=== PATIENT | female | born 1980 | race Caucasian/White ===

== ENCOUNTER → 2021-02-01 | Outpatient (CLI) | payer OTHER ==
[~2021-02-01] MED LIST: BUPR150T9 PO; CETI10CA PO; EMTR1TAB7 PO; FERR325T18 PO; FLUO20CA42 PO; MULT-301 PO; NORG1TAB87 PO; RALT400T PO
== END ==
LOC: CARD 14:51
PROVIDERS: ATTEND Family Medicine
DX: I51.7 Cardiomegaly (principal); I34.0 Nonrheumatic mitral (valve) insufficiency; Q25.1 Coarctation of aorta; Z87.74 Personal history of (corrected) congenital malformations of heart and circulatory system
CPT/HCPCS: 93306

== ENCOUNTER 2021-02-16 14:20 | Outpatient (CLI) | payer OTHER | END 2021-02-16 23:59 | disposition home or self-care (01) | LOC: CARD 14:20 | PROVIDERS: ATTEND Internal Medicine Cardiovascular Disease | DX: Q21.2 Atrioventricular septal defect (principal) | CPT/HCPCS: 93005 ==

== ENCOUNTER → 2021-02-16 | Outpatient (CLI) | payer OTHER | LOC: CARD 14:06 | PROVIDERS: ATTEND Internal Medicine Cardiovascular Disease | DX: I38 Endocarditis, valve unspecified (principal); Q21.2 Atrioventricular septal defect; Z87.74 Personal history of (corrected) congenital malformations of heart and circulatory system ==